=== PATIENT | female | born 1990 | race Two or more races ===

== ENCOUNTER 2017-02-01 11:29 | Inpatient (IN) | payer OTHER ==
[~2017-02-01 11:29] MED LIST: METHYLERGONOVINE 0.2 MG INJ
[2017-02-01 12:30] LABS: ADD MAN DIFF? NO
[2017-02-01] MEDS ORDERED: MISOPROSTOL 200 MCG TAB PR ×3 (12:30→18:00)
[2017-02-01] MEDS ORDERED: METHYLERGONOVINE 0.2 MG INJ IM ×3 (12:30→18:00)
[2017-02-01] MEDS ORDERED: OXYTOCIN 30 UNITS/LR 500 ML IV ×6 (12:30→18:00)
[2017-02-01] MEDS ORDERED: CARBOPROST 250 MCG INJ IM ×3 (12:30→18:00)
[2017-02-01 12:37] LABS: BASOPHILS % 0.3 % (0.0-2.0); EOSINOPHILS # 0.1 10^3/ul (0.0-0.5); EOSINOPHILS % 1.2 % (0.0-7.0); HEMATOCRIT 36.4 % (37.0-47.0); HEMOGLOBIN 12.1 g/dl (12.0-16.0); LYMPHOCYTES # 1.4 10^3/ul (0.8-2.9); LYMPHOCYTES % 21.1 % (15.0-51.0); MEAN CORPUSCULAR HEMOGLOBIN 27.8 pg (29.0-33.0); MEAN CORPUSCULAR HGB CONC 33.2 g/dl (32.0-37.0); MEAN CORPUSCULAR VOLUME 83.5 fl (82.0-101.0); MEAN PLATELET VOLUME 10.1 fl (7.4-10.4); MONOCYTE # 0.4 10^3/ul (0.3-0.9); MONOCYTES % 6.4 % (0.0-11.0); NEUTROPHIL # 4.8 10^3/ul (1.6-7.5); NEUTROPHILS % 70.3 % (39.0-77.0); PLATELET COUNT 336 10^3/UL (140-415); RED BLOOD COUNT 4.36 10^6/ul (4.20-5.40); RED CELL DISTRIBUTION WIDTH 14.5 % (11.5-14.5)
[2017-02-01 12:37] LABS: WHITE BLOOD COUNT 6.8 10^3/ul (4.8-10.8)
[2017-02-01 12:56] LABS: INR 0.88; PT RATIO 0.9
[2017-02-01 12:57] LABS: PARTIAL THROMBOPLASTIN TIME 31.1 Sec (25.0-35.0)
[2017-02-01] MEDS: LACTATED RINGER'S 250 ML IV ×2 (13:52→17:56)
[2017-02-01] MEDS ORDERED: CITRIC ACID/NA CITRATE 30 ML CUP (14:06)
[2017-02-01] MEDS ORDERED: METOCLOPRAMIDE 10 MG INJ (14:12)
[2017-02-01] MEDS ORDERED: morphine SULFATE/PF (10 MG/10 ML) INJ (14:12)
[2017-02-01] MEDS ORDERED: KETOROLAC 30 MG INJ (14:12)
[2017-02-01] MEDS ORDERED: ONDANSETRON 4 MG INJ (14:12)
[2017-02-01] MEDS ORDERED: EPINEPHrine 0.1 MG/ML SYG (14:23)
[2017-02-01] MEDS ORDERED: DIPHENHYDRAMINE 50 MG INJ IV ×3 (14:30→18:00)
[2017-02-01] MEDS ORDERED: ONDANSETRON 4 MG INJ IV ×3 (14:30→18:00)
[2017-02-01] MEDS ORDERED: morphine (1 MG/ML) 10ML SYRINGE IV ×6 (14:30→18:00)
[2017-02-01] MEDS: CEFAZOLIN 2 GM/50 ML (PMX) 50 ML IVPB (14:44)
[2017-02-01] MEDS: CITRIC ACID/SODIUM CITRATE 15 ML CUP PO ×2 (14:44→17:59)
[2017-02-01 15:09] LABS: RAPID PLASMA REAGIN NONREACTIVE (NR)
[2017-02-01 15:17] LABS: AMPHETAMINE/METHAMPHETAMINE NEGATIVE (NEGATIVE); BARBITURATES NEGATIVE (NEGATIVE); BENZODIAZEPINES NEGATIVE (NEGATIVE); CANNABINOIDS NEGATIVE (NEGATIVE); COCAINE NEGATIVE (NEGATIVE); OPIATES NEGATIVE (NEGATIVE)
[2017-02-01] MEDS: OXYTOCIN 30 UNITS/LR 500 ML IV ×3 (15:58→23:24)
[2017-02-01] MEDS ORDERED: NALOXONE (0.4 MG/ML) INJ IV (16:00)
[2017-02-01] MEDS ORDERED: morphine 4 MG/ML VIAL IV (16:00)
[2017-02-01] MEDS ORDERED: morphine 2 MG INJ IV ×2 (16:00)
[2017-02-01] MEDS ORDERED: IBUPROFEN 600 MG TAB PO (18:00)
[2017-02-01] MEDS ORDERED: HYDROCODONE/APAP (5/325) TAB PO ×2 (18:00)
[2017-02-01] MEDS ORDERED: CEFAZOLIN 2 GM/50 ML (PMX) 50 ML IVPB (18:00)
[2017-02-01] MEDS ORDERED: OXYCODONE/ACETAMINOPHEN (5/325) TAB PO (18:00)
[2017-02-01] MEDS: CEFAZOLIN 1 GM/50 ML (PMX) 50 ML IVPB (18:16)
[2017-02-01] MEDS: SENNA/DOCUSATE NA (8.6MG/50MG) TAB PO (21:00)
[2017-02-02] MEDS: OXYTOCIN 30 UNITS/LR 500 ML IV ×4 (03:39→13:49)
[2017-02-02 08:50] LABS: ADD MAN DIFF? NO
[2017-02-02 08:59] LABS: WHITE BLOOD COUNT 9.1 10^3/ul (4.8-10.8)
[2017-02-02 09:00] LABS: BASOPHILS % 0.2 % (0.0-2.0); EOSINOPHILS # 0.1 10^3/ul (0.0-0.5); EOSINOPHILS % 0.6 % (0.0-7.0); HEMATOCRIT 29.2 % (37.0-47.0); HEMOGLOBIN 9.9 g/dl (12.0-16.0); LYMPHOCYTES # 1.3 10^3/ul (0.8-2.9); LYMPHOCYTES % 14.6 % (15.0-51.0); MEAN CORPUSCULAR HEMOGLOBIN 28.5 pg (29.0-33.0); MEAN CORPUSCULAR HGB CONC 33.9 g/dl (32.0-37.0); MEAN CORPUSCULAR VOLUME 84.1 fl (82.0-101.0); MEAN PLATELET VOLUME 9.9 fl (7.4-10.4); MONOCYTE # 0.6 10^3/ul (0.3-0.9); MONOCYTES % 6.5 % (0.0-11.0); NEUTROPHILS % 77.7 % (39.0-77.0); PLATELET COUNT 266 10^3/UL (140-415); RED BLOOD COUNT 3.47 10^6/ul (4.20-5.40); RED CELL DISTRIBUTION WIDTH 14.9 % (11.5-14.5)
[2017-02-02] MEDS: SENNA/DOCUSATE NA (8.6MG/50MG) TAB PO ×2 (09:00→19:53)
[2017-02-02] MEDS: LANOLIN 7 GM TUBE TOP (11:48)
[2017-02-02] MEDS: KETOROLAC 30 MG INJ IV (12:07)
[2017-02-02] MEDS: IBUPROFEN 600 MG TAB PO (17:40)
[2017-02-02] MEDS: OXYCODONE/ACETAMINOPHEN (5/325) TAB PO (19:54)
[2017-02-03] MEDS: IBUPROFEN 600 MG TAB PO ×4 (00:25→17:54)
[2017-02-03] MEDS: INFLUENZA VIRUS VACCINE 0.5 ML (DISPENSING) IM* (09:00)
[2017-02-03] MEDS: SENNA/DOCUSATE NA (8.6MG/50MG) TAB PO ×2 (09:53→21:27)
[2017-02-04] MEDS: IBUPROFEN 600 MG TAB PO ×3 (00:01→12:36)
[2017-02-04] MEDS: SENNA/DOCUSATE NA (8.6MG/50MG) TAB PO (09:56)
[2017-02-04] MEDS: DIPHTH/TET/ACEL PERTUSS (ADULT) 0.5 ML VIAL IM* (09:57)
== END 2017-02-04 17:49 | disposition home or self-care (01) | DRG 766 ==
LOC: L-D 11:29 → PP1 18:00
PROVIDERS: Obstetrics & Gynecology
PROC: 10D00Z1 Extraction of Products of Conception, Low, Open Approach (ICD-10-PCS; principal; 2017-02-01 14:00)
PROC: 0UL70ZZ Occlusion of Bilateral Fallopian Tubes, Open Approach (ICD-10-PCS; 2017-02-01 14:00)
PROC: 3E033VJ Introduction of Other Hormone into Peripheral Vein, Percutaneous Approach (ICD-10-PCS; 2017-02-01 14:00)
DX: O34.211 Maternal care for low transverse scar from previous cesarean delivery (principal); Z30.2 Encounter for sterilization; Z37.0 Single live birth; Z3A.39 39 weeks gestation of pregnancy
CPT/HCPCS: 80307; 85025; 85610; 85730; 86592; 86850; 86900; 86901; 88302; 90686; 90715; 99464